=== PATIENT | female | born 1970 | race Caucasian/White ===

== ENCOUNTER → 2016-12-20 | Outpatient (REF) | payer BC ==
[~2016-12-20] MED LIST: ASPI1TAB PO; CLON2TAB PO; EXCETAB80 PO; LAMO100T PO; QUASTAB PO; QUET1TAB8 PO; VENL150C43 PO; VITA100066 PO; VITMTA PO
== END | disposition home or self-care (01) ==
LOC: M LAB REF 17:00
PROVIDERS: ATTEND Nurse Practitioner Family
DX: R94.6 Abnormal results of thyroid function studies (principal)

== ENCOUNTER → 2019-06-24 | Outpatient (REF) | payer BC, OTHER ==
[~2019-06-24] MED LIST changes: -ASPI1TAB PO; +ASPI81TA26 PO; -CLON2TAB PO; +CLON2TAB7 PO
[2019-06-25 17:45] LABS: THYROID STIMULATING HORMONE 2.13 uIU/ML (0.358-3.740); THYROXINE (T4) 12.4 UG/DL (4.5-12.0)
== END ==
LOC: M LABDRAW1 17:18
PROVIDERS: ATTEND Ophthalmology
DX: Z13.29 Encounter for screening for other suspected endocrine disorder (principal)

== ENCOUNTER → 2019-06-24 | Outpatient (REF) | payer BC, OTHER ==
[2019-06-24 13:45] LABS: HEMATOCRIT 43.6 % (36.0-47.0); HEMOGLOBIN 14.5 g/dl (12.0-15.5); MEAN CORPUSCULAR HEMOGLOBIN 30.1 pg (27.0-33.0); MEAN CORPUSCULAR HGB CONC 33.3 g/dl (32.0-36.5); MEAN CORPUSCULAR VOLUME 90.6 fl (80.0-96.0); PLATELET COUNT, AUTOMATED 330 10^3/uL (150-450); RED BLOOD COUNT 4.81 10^6/uL (4.00-5.40)
[2019-06-24 14:26] LABS: ALBUMIN 4.5 GM/DL (3.2-5.2); ALT/SGPT 26 U/L (12-78); BILIRUBIN,TOTAL 0.7 MG/DL (0.2-1.0); BLOOD UREA NITROGEN 8 MG/DL (7-18); CALCIUM LEVEL 9.3 MG/DL (8.5-10.1); CARBON DIOXIDE LEVEL 24 MEQ/L (21-32); CHLORIDE LEVEL 102 MEQ/L (98-107); CHOLESTEROL LEVEL 211 MG/DL (<200); CHOLESTEROL RISK RATIO 1.918 (<5); GLOMERULAR FILTRATION RATE > 60.0 (>58); GLUCOSE, FASTING 87 MG/DL (70-100); HDL CHOLESTEROL 110 MG/DL (>40); LDL CHOLESTEROL 83 MG/DL (<100); NON-HDL-C 101 MG/DL; POTASSIUM SERUM 3.7 MEQ/L (3.5-5.1); SODIUM LEVEL 139 MEQ/L (136-145); TOTAL PROTEIN 7.8 GM/DL (6.4-8.2); TRIGLYCERIDES LEVEL 89 MG/DL (<150)
== END ==
LOC: M LABDRAW1 12:12
PROVIDERS: ATTEND Family Medicine
DX: Z13.220 Encounter for screening for lipoid disorders (principal); Z13.1 Encounter for screening for diabetes mellitus; Z86.2 Personal history of diseases of the blood and blood-forming organs and certain disorders involving the immune mechanism

== ENCOUNTER → 2019-07-17 | Outpatient (CLI) | payer BC, OTHER ==
--- NOTE | 2019-07-17 22:48 | REP ---
Clinical: Hypertension and chronic medical renal disease. Technique: Callejas scale and color Doppler evaluation of the kidneys and renal vasculature using curved array transducer. Findings: The kidneys appear echogenic, but normal in contour, size and reniform shape without hydronephrosis, nephrolithiasis, cystic or renal mass lesion. Right kidney measures 10.6 x 5.2 x 5.7 cm . Left kidney measures 10.3 x 5.4 x 5.9 cm . Bladder is incompletely distended and grossly normal by current evaluation. Color Doppler evaluation of the renal vasculature demonstrates normal arterial wave patterns, velocities, renal aortic ratios, resistive indices and the acceleration time. No sonographic evidence for renal arterial stenosis noted. Renal vein is patent. Right Kidney: Peak arterial velocity: 156 cm/sec . Renal aortic ratio: 0.9 . Resistive indices: 0.52 - 0.55 . Acceleration times: 0.03 - 0.04 . Left kidney: Peak arterial velocity: 112 cm/sec . Renal aortic ratio: 0.6 . Resistive indices: 0.59 - 0.67 . Acceleration times: 0.03 . Impression: Echogenic kidneys suggesting the possibility of medical renal disease. No evidence for renal arterial stenosis. Electronically Signed by Bora Rios MD 07/17/2019 10:39 P
== END ==
LOC: M RAD 08:40
PROVIDERS: ATTEND Internal Medicine Cardiovascular Disease
DX: I10 Essential (primary) hypertension (principal)

== ENCOUNTER → 2019-07-25 | Outpatient (REF) | payer OTHER ==
[2019-07-25 13:07] LABS: FREE T4 1.03 NG/DL (0.76-1.46); THYROID STIMULATING HORMONE 1.57 uIU/ML (0.358-3.740)
== END ==
LOC: M SFHCPLAZ 10:13
PROVIDERS: ATTEND Family Medicine
DX: H40.9 Unspecified glaucoma (principal)

== ENCOUNTER → 2019-08-16 | Outpatient (REF) | payer OTHER | LOC: M LAB REF 09:42 | PROVIDERS: ATTEND Ophthalmology | DX: H02.834 Dermatochalasis of left upper eyelid (principal); H02.831 Dermatochalasis of right upper eyelid ==

== ENCOUNTER → 2020-07-22 | Outpatient (CLI) | payer OTHER ==
[~2020-07-22] MED LIST changes: +CLON1TAB8 PO; +CLON2TAB14 PO; +COSO1SOL3 OD; +HYDR-3713 PO; +IMIT50TA PO; +JOLETAB PO; -LAMO100T PO; +LAMO100T3 PO; +LOSA25TA14 PO; +LOSA50TA88 PO; +QUET100T2 PO; -QUET1TAB8 PO; +TRAM50TA2 PO; +XALA0.007 OD
--- NOTE | 2020-07-22 16:35 | REPMRS ---
Patient History The patient states she had a clinical breast exam in July 2020.Patient had first child at age 34. Family history of prostate cancer and colorectal cancer in paternal grandfather. Taking hormonal contraceptives for 10 years beginning at age 40. 3D TOMOSYNTHESIS WAS PERFORMED. The [facility] lifetime risk for breast cancer is 12.5%. VOLPARA KEV B. Digital Woman Screen Mammo: July 22, 2020 - Exam #: [id number] Bilateral CC and MLO view(s) were taken. Technologist: Piper Blanchard, RT FINDINGS: The breast tissue is heterogeneously dense. This may lower the sensitivity of mammography. There has been no change in the appearance of the mammogram from the prior studies. There is a moderate amount of residual fibroglandular tissue which is fairly symmetric. There is no interval development of dominant mass, areas of architectural distortion, or clustered microcalcification typical of malignancy. Assessment: BI-RADS/ACR category 1 mammogram. Negative Mammogram. Recommendation Routine screening mammogram in 1 year (for women over age 40). This mammogram was interpreted with the aid of an FDA-approved computer-aided dectection system. Electronically Signed By: Haroldo Callejas MD 07/22/20 [id number]
== END ==
LOC: M WHC 13:25
PROVIDERS: ATTEND Advanced Practice Midwife
DX: Z12.31 Encounter for screening mammogram for malignant neoplasm of breast (principal); Z92.0 Personal history of contraception

== ENCOUNTER → 2020-07-22 | Outpatient (REF) | payer OTHER | LOC: M SFHCWAGY 14:30 | PROVIDERS: ATTEND Advanced Practice Midwife | DX: Z12.4 Encounter for screening for malignant neoplasm of cervix (principal) ==

== ENCOUNTER → 2020-07-23 | Outpatient (CLI) | payer OTHER ==
[2020-07-23 16:08] LABS: HEMATOCRIT 39.1 % (36.0-47.0); HEMOGLOBIN 12.7 g/dl (12.0-15.5); MEAN CORPUSCULAR HGB CONC 32.5 g/dl (32.0-36.5); MEAN CORPUSCULAR VOLUME 89.3 fl (80.0-96.0); PLATELET COUNT, AUTOMATED 286 10^3/uL (150-450); RED BLOOD COUNT 4.38 10^6/uL (4.00-5.40); WHITE BLOOD COUNT 6.4 10^3/uL (4.0-10.0)
[2020-07-23 16:22] LABS: BLOOD UREA NITROGEN 8 MG/DL (7-18); CALCIUM LEVEL 8.5 MG/DL (8.5-10.1); CARBON DIOXIDE LEVEL 25 MEQ/L (21-32); CHLORIDE LEVEL 99 MEQ/L (98-107); CREATININE FOR GFR 0.68 MG/DL (0.55-1.30); GLOMERULAR FILTRATION RATE > 60.0 (>58); GLUCOSE, FASTING 79 MG/DL (70-100); POTASSIUM SERUM 4.2 MEQ/L (3.5-5.1); SODIUM LEVEL 133 MEQ/L (136-145)
== END ==
LOC: M PLALAB 14:30
PROVIDERS: ATTEND Family Medicine
DX: Z01.818 Encounter for other preprocedural examination (principal)

== ENCOUNTER → 2020-07-30 | Outpatient (CLI) | payer OTHER | LOC: M LABSMTC 11:15 | PROVIDERS: ATTEND Anesthesiology | DX: Z11.59 Encounter for screening for other viral diseases (principal) | CPT/HCPCS: C9803; U0003 ==

== ENCOUNTER 2020-08-04 06:14 | Day surgery (SDC) | payer OTHER ==
[~2020-08-04] VITALS: Ht 154.9 cm; Wt 64.1 kg
[~2020-08-04 06:14] MED LIST changes: +BUPIVACAINE HCL 0.5% 30 ML VIAL As Ordered ONE; -CLON1TAB8 PO; -HYDR-3713 PO; +LIDOCAINE 1% MDV 20ML VIAL SQ PRN; +LIDOCAINE 1% SDV 30ML VIAL As Ordered ONE; -LOSA25TA14 PO; -TRAM50TA2 PO; +UNRESOLVED CLARIFICATION ENTRY XX SCH; +dexameTHASONE 4 MG/ML 1ML VIAL (J1100 PER 1MG) As Ordered ONE
[2020-08-04] MEDS ORDERED: fentaNYL 100 MCG/2 ML INJECTION (J3010) As Ordered ONE (06:49)
[2020-08-04] MEDS ORDERED: MIDAZOLAM INJ 2MG/2ML VIAL (J2250 PER 1MG) As Ordered ONE (06:49)
[2020-08-04] MEDS ORDERED: dexameTHASONE 4 MG/ML 1ML VIAL (J1100 PER 1MG) As Ordered ONE (06:50)
[2020-08-04] MEDS ORDERED: ONDANSETRON 4MG/2ML VIAL As Ordered ONE (06:50)
[2020-08-04] MEDS ORDERED: LIDOCAINE 2% 100MG/5ML SDV (FOR ANES.) As Ordered ONE ×2 (06:50→06:55)
[2020-08-04] MEDS ORDERED: propofoL 200 MG/20 ML VIAL As Ordered ONE ×2 (06:50→08:13)
[2020-08-04] MEDS ORDERED: ceFAZolin 2 GM/D5W 50 ML IV BAG (J0690 PER 500MG) As Ordered ONE (06:53)
[2020-08-04] MEDS ORDERED: ceFAZolin SOD 2 GM in IV 1 EA IV ONE (07:00)
[2020-08-04] MEDS ORDERED: PHENYLephrine HCL 500 MCG/5 ML (100MCG/ML) SYRINGE (J2370) As Ordered ONE (08:09)
[2020-08-04] MEDS ORDERED: HYDR-3713 PO (08:51)
[2020-08-04] MEDS ORDERED: LR 1,000 ML IV SCH (09:30)
[2020-08-04] MEDS ORDERED: ONDANSETRON 4MG/2ML VIAL IV PRN (09:30)
[2020-08-04] MEDS ORDERED: oxyCODONE 5MG TAB PO PRN (09:30)
[2020-08-04] MEDS ORDERED: fentaNYL 100 MCG/2 ML INJECTION (J3010) IV PRN (09:30)
[2020-08-04 09:40] VITALS: BP 164/92
--- NOTE | 2020-08-16 15:14 | RO ---
DATE OF SURGERY: 08/04/2020 SURGEON: Sascha Hutchinson DPM INFORMATION SECURITY SYSTEMS INSTRUCTOR: None. PREOPERATIVE DIAGNOSIS: Right foot bunion, hallux valgus. POSTOPERATIVE DIAGNOSIS: Right foot bunion, hallux valgus. PROCEDURE: Right foot bunionectomy with first metatarsal osteotomy and Amaury osteotomy. ANESTHESIA: Monitored anesthesia care. PREOPERATIVE INJECTION: 18 cc of a one-to-one mixture of 1% lidocaine plain and 0.5% Marcaine plain. ESTIMATED BLOOD LOSS: Minimal. MATERIALS: Arthrex 3.5 hallux compression screw, Arthrex DynaNite staple, 3-0 Vicryl and 4-0 Vicryl, 4-0 nylon. INJECTABLES: 1 mL Decadron 4 mg/mL. COMPLICATIONS: None. CONDITION: Stable. INDICATIONS: Charlene Lowery is a 50-year-old female who presents to [facility] with complaints of painful bunion. She presents today for surgical correction. The patient's side and site were identified and marked preoperatively. Consent was reviewed and obtained. The risks, complications, and alternatives to the procedure explained to the patient in detail and all questions were answered. PROCEDURE: The patient was brought to the operating room and placed on the operating room table in the supine position. Monitored anesthesia care was delivered by the anesthesia team. Preoperative injection of 18 cc of a one-to-one mixture of 1% lidocaine plain and 0.5% Marcaine plain were injected in the right foot. The right foot was prepped and draped in normal sterile fashion. The tourniquet was applied to the right ankle and inflated to 215 mmHg. A dorsal medial incision was drawn and carried through with a #15 blade. Dissection was first carried to the first metatarsophalangeal joint. A T- capsulotomy was performed exposing the metatarsal head. Following this, a lateral release was performed releasing the adductor tendon, sesamoidal ligament, and lateral capsule. The McGlamry elevator was used to release the plantar structures. Following this, the medial eminence of the metatarsal head was resected with a sagittal saw and an osteotomy was performed of the metatarsal head and neck, transposing it laterally. This was fixated with an Arthrex 3.5 headless compression screw. The remaining bone ledge was resected with a sagittal saw. The site was irrigated with normal saline. Attention was then paid to the proximal phalanx. Overlying soft tissue was released exposing the bone of the proximal phalanx. A wedge of cortex was removed from the medial cortex, effectively placing the toe in a more medialized position. This was fixated with an Arthrex DynaNite staple. The site was irrigated with normal saline. A small wedge of capsule was removed from the medial capsule and the capsular repair was then performed with 3-0 Vicryl, subcutaneous tissue closure of 4-0 Vicryl, and skin closure of 4-0 nylon. Sterile dressings were applied. The tourniquet was deflated. The patient was brought to the PACU with vital signs stable and neurovascular status intact. She will be partial weightbearing of the right foot. She will follow up in the office in two days. SOPHIA
[2020-10-01] MEDS ORDERED: LOSA25TA14 PO (07:57)
[2020-10-01] MEDS ORDERED: TRAM50TA2 PO (07:57)
[2020-10-01] MEDS ORDERED: LAMO100T3 PO (07:57)
[2020-10-01] MEDS ORDERED: JOLETAB PO (07:57)
[2020-10-01] MEDS ORDERED: CLON1TAB8 PO (07:57)
== END 2020-08-04 10:03 | disposition home or self-care (01) ==
LOC: M SDC 06:14
PROVIDERS: ATTEND Podiatrist Foot & Ankle Surgery
DX: M20.11 Hallux valgus (acquired), right foot (principal); I10 Essential (primary) hypertension; F31.9 Bipolar disorder, unspecified; F32.9 Major depressive disorder, single episode, unspecified; F41.9 Anxiety disorder, unspecified; L40.9 Psoriasis, unspecified; Z79.899 Other long term (current) drug therapy; Z88.1 Allergy status to other antibiotic agents
CPT/HCPCS: 28299; 81025; 88300; 97116; 97161; C1713; J0690; J1100; J2250; J2370; J2405; J3010

== ENCOUNTER → 2020-10-03 | Outpatient (CLI) | payer OTHER ==
[~2020-10-03] MED LIST changes: -BUPIVACAINE HCL 0.5% 30 ML VIAL As Ordered ONE; +CLON1TAB8 PO; +HYDR-3713 PO; -LIDOCAINE 1% MDV 20ML VIAL SQ PRN; -LIDOCAINE 1% SDV 30ML VIAL As Ordered ONE; +LOSA25TA14 PO; +TRAM50TA2 PO; -UNRESOLVED CLARIFICATION ENTRY XX SCH; -dexameTHASONE 4 MG/ML 1ML VIAL (J1100 PER 1MG) As Ordered ONE
== END ==
LOC: M LABSMTC 08:18
PROVIDERS: ATTEND Anesthesiology
DX: Z01.812 Encounter for preprocedural laboratory examination (principal); Z20.828 Contact with and (suspected) exposure to other viral communicable diseases

== ENCOUNTER 2020-10-08 08:20 | Day surgery (SDC) | payer OTHER ==
[~2020-10-08] VITALS: Ht 157.5 cm; Wt 65.9 kg
[~2020-10-08 08:20] MED LIST changes: +BUPIVACAINE HCL 0.5% 30 ML VIAL As Ordered ONE; +LIDOCAINE 1% MDV 20ML VIAL As Ordered ONE; +LIDOCAINE 1% MDV 20ML VIAL SQ PRN; +LR 1,000 ML IV ONE; +ceFAZolin SOD 2 GM in IV 1 EA IV ONE; +dexameTHASONE 4 MG/ML 1ML VIAL (J1100 PER 1MG) As Ordered ONE
[2020-10-08] MEDS ORDERED: KETOROLAC 60MG 2ML VIAL As Ordered ONE (08:59)
[2020-10-08] MEDS ORDERED: ONDANSETRON 4MG/2ML VIAL As Ordered ONE (08:59)
[2020-10-08] MEDS ORDERED: propofoL 200 MG/20 ML VIAL As Ordered ONE (08:59)
[2020-10-08] MEDS ORDERED: LIDOCAINE 2% 100MG/5ML SDV (FOR ANES.) As Ordered ONE (08:59)
[2020-10-08] MEDS ORDERED: MIDAZOLAM INJ 2MG/2ML VIAL (J2250 PER 1MG) As Ordered ONE (09:00)
[2020-10-08] MEDS ORDERED: fentaNYL 100 MCG/2 ML INJECTION (J3010) As Ordered ONE ×2 (09:00→10:42)
[2020-10-08] MEDS ORDERED: LACRILUBE (AKWA TEARS) OPHTH OINT 3.5 GM As Ordered ONE (10:26)
[2020-10-08] MEDS ORDERED: ACETAMINOPHEN 1000MG 100ML IV BTL (OFIRMEV) (J0131 PER 10MG) As Ordered ONE (10:39)
[2020-10-08 11:30] VITALS: BP 130/78
[2020-10-08] MEDS ORDERED: LR 1,000 ML IV SCH (11:30)
[2020-10-08] MEDS ORDERED: oxyCODONE 5MG TAB PO PRN (11:30)
[2020-10-08] MEDS ORDERED: ONDANSETRON 4MG/2ML VIAL IV PRN (11:30)
--- NOTE | 2020-10-08 14:44 | RO ---
DATE OF OPERATION: 10/08/2020 SURGEON: Sascha Hutchinson DPM FISH PROCESSOR: None. PREOPERATIVE DIAGNOSIS: Left foot bunion hallux valgus and ganglion. POSTOPERATIVE DIAGNOSIS: Left foot bunion hallux valgus and ganglion PROCEDURE: Left foot bunionectomy and first metatarsal osteotomy, Amaury osteotomy and ganglion excision. ANESTHESIA: Monitored anesthesia care. PREOPERATIVE INJECTION: 15 cc of a one-to-one mixture of 1% lidocaine plain and 0.5% Marcaine plain. ESTIMATED BLOOD LOSS: Minimal. MATERIALS: Arthrex 3.5 headless compression screw, Arthrex DynaNite staple, 3-0 Vicryl, 4-0 Vicryl, 4-0 nylon. INJECTABLES: 1 cc Decadron 4 mg/mL. COMPLICATIONS: None. CONDITION: Stable. INDICATIONS: Charlene Lowery is a 50-year-old female who presents to [facility] with a painful bunion to her left foot. She also notes a bump on the bottom of her foot in that same region. She presents today for surgical correction. The patient's side and site were identified and marked preoperatively. Consent was reviewed and obtained. All risks, complications, and alternatives to the procedure were explained to the patient in detail and all questions were answered. PROCEDURE: The patient was brought to the operating room and placed on the operating room table in the supine position. Monitored anesthesia care was delivered by the anesthesia team. Preoperative injection of 15 cc of a one-to-one mixture of 1% lidocaine plain and 0.5% Marcaine plain were injected to the left foot. The left foot was prepped and draped in normal sterile fashion. The tourniquet was applied to the left ankle and inflated to 215 mmHg. A plantar median incision was drawn and carried through adjacent to the first metatarsal. A cyst was identified in the subcutaneous tissue. This was carefully freed and excised in total using tenotomy scissors. This was sent for pathology. The site was irrigated with normal saline and the incision was repaired with 4-0 Vicryl and 4-0 nylon. Following this a dorsal median incision was drawn and carried through with a #15 blade and dissection was carried down to the first metatarsal phalangeal joint. T-capsulotomy was performed exposing the metatarsal head. Following this, a lateral release was performed, releasing the adduction tendon and sesamoidal ligaments. A McGlamry elevator was used to release the plantar structures. Next the medial eminence of the metatarsal head was resected with a sagittal saw and osteotomy was performed of the metatarsal head and neck transposing it laterally. This was fixated with an Arthrex 3.5 headless compression screw. The remaining bone edges were resected with the sagittal saw and smooth with a rasp. It was irrigated with normal saline. Next attention was paid to the proximal phalanx. A wedge of the medial cortex was removed with a sagittal saw and fixated with staple effectively placing the toe in a more medial position. The site again was irrigated with normal saline. A capsular repair was performed with 3-0 Vicryl, subcutaneous closure with 4-0 Vicryl, and skin closure with 4-0 nylon. Then, 1 cc of Decadron was injected. Sterile dressings were applied. The tourniquet was deflated. The patient was brought to PACU with vital signs stable and neurovascular status intact. She will be partial weightbearing. She will follow up in the office in two days. SOPHIA
== END 2020-10-08 12:01 | disposition home or self-care (01) ==
LOC: M SDC 08:20
PROVIDERS: ATTEND Podiatrist Foot & Ankle Surgery
DX: M20.12 Hallux valgus (acquired), left foot (principal); M67.472 Ganglion, left ankle and foot; I10 Essential (primary) hypertension; I49.9 Cardiac arrhythmia, unspecified; H40.9 Unspecified glaucoma; L40.9 Psoriasis, unspecified; F41.9 Anxiety disorder, unspecified; F31.9 Bipolar disorder, unspecified; G43.909 Migraine, unspecified, not intractable, without status migrainosus; Z79.3 Long term (current) use of hormonal contraceptives; Z79.899 Other long term (current) drug therapy; Z88.1 Allergy status to other antibiotic agents
CPT/HCPCS: 25111; 28298; 81025; 88300; 88304; C1713; J0131; J0690; J1100; J1885; J2250; J2405; J3010

== ENCOUNTER → 2021-02-14 | Outpatient (REF) | payer OTHER ==
[~2021-02-14] MED LIST changes: -BUPIVACAINE HCL 0.5% 30 ML VIAL As Ordered ONE; -LIDOCAINE 1% MDV 20ML VIAL As Ordered ONE; -LIDOCAINE 1% MDV 20ML VIAL SQ PRN; -LR 1,000 ML IV ONE; -ceFAZolin SOD 2 GM in IV 1 EA IV ONE; -dexameTHASONE 4 MG/ML 1ML VIAL (J1100 PER 1MG) As Ordered ONE
[2021-02-14 13:19] LABS: BLOOD UREA NITROGEN 9 MG/DL (7-18); CALCIUM LEVEL 8.7 MG/DL (8.5-10.1); CARBON DIOXIDE LEVEL 28 MEQ/L (21-32); CHLORIDE LEVEL 106 MEQ/L (98-107); CREATININE FOR GFR 0.67 MG/DL (0.55-1.30); GLOMERULAR FILTRATION RATE > 60.0 (>58); GLUCOSE, FASTING 113 MG/DL (70-100); POTASSIUM SERUM 4.5 MEQ/L (3.5-5.1); SODIUM LEVEL 137 MEQ/L (136-145)
[2021-02-14 13:31] LABS: CREATININE, URINE < 13.0 MG/DL; MALB URINE SIEMENS 6.7 MG/L
== END ==
LOC: M SFHCPLAZ 10:30
PROVIDERS: ATTEND Family Medicine
DX: I10 Essential (primary) hypertension (principal)

== ENCOUNTER → 2021-03-22 | Outpatient (REF) | payer OTHER ==
[2021-03-22 16:02] LABS: CREATININE, URINE 15.8 MG/DL; MALB URINE SIEMENS 5.8 MG/L; MAU/CREAT RATIO 36.7 MCG/MG (0.0-30.0)
== END ==
LOC: M SFHCPLAZ 14:53
PROVIDERS: ATTEND Family Medicine
DX: R80.9 Proteinuria, unspecified (principal)

== ENCOUNTER → 2021-05-31 | Outpatient (CLI) | payer OTHER ==
[~2021-05-31] MED LIST changes: +LOSA25TA13 PO; -LOSA25TA14 PO; +LOSA50TA28 PO; -LOSA50TA88 PO
== END ==
LOC: M RAD 17:55
PROVIDERS: ATTEND Family Medicine
DX: M54.5 Low back pain (principal)

== ENCOUNTER → 2021-06-01 | Outpatient (CLI) | payer OTHER ==
[~2021-06-01] MED LIST changes: -LOSA25TA13 PO; +LOSA25TA14 PO; -LOSA50TA28 PO; +LOSA50TA88 PO
[2021-06-01 15:42] LABS: BASO # 0.1 10^3/uL (0.0-0.2); BASO % 0.6 % (0.0-1.0); HEMATOCRIT 37.6 % (36.0-47.0); MEAN CORPUSCULAR HEMOGLOBIN 29.1 pg (27.0-33.0); MEAN CORPUSCULAR HGB CONC 31.9 g/dl (32.0-36.5); MONO # 0.4 10^3/uL (0.0-0.8); MONO % 5.3 % (2.0-8.0); NEUTROPHILS # 5.2 10^3/uL (1.5-8.5); NEUTROPHILS % 67.7 % (36.0-66.0); PLATELET COUNT, AUTOMATED 323 10^3/uL (150-450); RED BLOOD COUNT 4.13 10^6/uL (4.00-5.40); WHITE BLOOD COUNT 7.7 10^3/uL (4.0-10.0)
[2021-06-01 16:03] LABS: ERYTHROCYTE SEDIMENTATION RATE 19 mm/hr (0-30)
== END ==
LOC: M PLALAB 13:32
PROVIDERS: ATTEND Family Medicine
DX: M54.5 Low back pain (principal)